=== PATIENT | female | born 1940 | race Caucasian/White ===

== ENCOUNTER → 2016-08-28 | Day surgery (SDC) | payer MEDICARE ==
[~2016-08-28] MED LIST: ALBUAER3 INH; ASPI1TAB69 PO; ATOR40TA16 PO; BORT3.5P IV; BUPIVACAINE HCL PF 0.5% 30 ML VIAL ONE; CYCL1TAB29 PO; DEXA4TAB PO; FENT75DI T-DERMAL; FURO20TA PO; GABA300C5 PO; HYDR4TAB PO; IPRASOL INH; LACT10SO48 PO; LEVO88TA2 PO; MIRA33504 PO; ONDA1TAB16 PO; POTA10TA8 PO; PROC5TAB PO; PROPOFOL 200 MG/20 ML AMP IV ONE; SENN1TAB17 PO; SULF1TAB23 PO; TRIAMCINOLONE ACETONIDE 40 MG/ML VIAL I-ARTICULR ONE; ZOME4INJ IV; ZOVI400T PO
--- NOTE | 2016-09-01 13:04 | M6 ---
cc: KEVIN ANGEL M.D. DATE 08/28/2016 DATE OF 1940 PROCEDURE Fluoroscopically guided right T10, T11 and T12 transforaminal nerve root injection. History and physical was completed and signed. Consent was signed. Procedure site was marked. Medications were listed and reconciled. Pain score was recorded. Allergies were noted. Time out was taken. Fluoroscopy time was recorded where applicable. Sedation was administered or directed by Dr. Angel. The patient was given oxygen. The patient was monitored by a registered nurse. Total procedure time was greater than 15 minutes. PROCEDURE NOTE IV was started. Blood pressure cuff, pulse oximeter and EKG were applied. The patient was placed in the prone position on a Poncho table, sedated with small amounts of propofol titrated to effect. Vital signs were monitored and remained stable throughout the procedure. The skin was prepped with alcohol and 10% Betadine solution, draped with sterile drapes. Fluoroscopy was used to visualize the right T10, T11 and T12 neural foramen. Separate sterile 25-gauge spinal needles were advanced to each neural foramen. There was negative aspiration for blood or any other type of fluid and at each location the patient was given 2 mL of 0.5% Marcaine and 20 mg of Kenalog. Following the procedure the patient was taken to the recovery room with stable vital signs, neurologically intact. She will be evaluated immediately and with followup to determine if she has a subjective decrease in her usual pain and a corresponding objective increase her functional capabilities. WMD ROBBY Patel/JANE /9:51 AM /1:01 PM
== END | disposition home or self-care (01) ==
LOC: PHSDC 08:54
PROVIDERS: ATTEND Pain Medicine Interventional Pain Medicine
DX: M54.6 Pain in thoracic spine (principal)
CPT/HCPCS: 64479; 64480; 77003; 99152; J3301